=== PATIENT | female | born 1995 | race Caucasian/White ===

== ENCOUNTER 2022-09-02 13:18 | Outpatient (CLI) | payer MEDICAID ==
[~2022-09-02] VITALS: Ht 157 cm; Wt 95.4 kg
[2022-09-02 13:34] VITALS: BP 112/75
[2022-09-02 13:54] VITALS: BP 106/96
[2022-09-02 14:25] VITALS: BP 106/96
[2022-09-02 14:41] LABS: BILIRUBIN,URINE NEGATIVE (NEGATIVE); CLARITY,URINE CLOUDY; COLOR,URINE YELLOW; GLUCOSE, URINE (UA) NEGATIVE (NEGATIVE); KETONES,URINE NEGATIVE (NEGATIVE); LEUKOCYTE ESTERASE ,URINE 1+ (NEGATIVE); NITRITE,URINE NEGATIVE (NEGATIVE); PH,URINE 7.5 (5-9); PROTEIN,URINE NEGATIVE (NEGATIVE)
[2022-09-02 14:52] LABS: BACTERIA,URINE MODERATE /HPF
[2022-09-02] MEDS ORDERED: SERT100T PO (14:56)
[2022-09-02] MEDS ORDERED: ACYC400T21 PO (14:56)
[2022-09-02] MEDS ORDERED: FERR-84 PO (14:56)
[2022-09-02] MEDS ORDERED: PNV11TAB5 PO (14:56)
[2022-09-02 14:57] VITALS: BP 104/68
[2022-09-02 15:45] VITALS: BP 119/68
[2022-09-02 16:06] VITALS: BP 119/68
--- NOTE | 2022-09-02 16:07 | Physician Query-Final Dx ---
Clinic Account Progress/Dx DIAGNOSIS: Date Seen by Provider: Sep 02, 2022 Time Seen by Provider: 15:45 Contractions without active labor. Gestational Age in Weeks: 39 Gestational Age in Days: 2 Supervisory-Addendum Brief Supervisory Addendum Verification and Attestation of Medical Student E/M Service A medical student performed and documented this service in my presence. I reviewed and verified all information documented by the medical student and made modifications to such information, when appropriate. I personally performed the physical exam and medical decision making. Jorge Ontiveros, Sep 02, 2022,16:21 ARIC DIAZ Sep 02, 2022 16:07 JORGE ONTIVEROS MD Sep 02, 2022 16:21
== END 2022-09-02 16:06 | disposition home or self-care (01) ==
LOC: WSo 13:18 → LDRP 13:18 → WSo 16:06
PROVIDERS: ATTEND Family Medicine
DX: O47.1 False labor at or after 37 completed weeks of gestation (principal); O42.92 Full-term premature rupture of membranes, unspecified as to length of time between rupture and onset of labor; Z3A.39 39 weeks gestation of pregnancy
CPT/HCPCS: 81000; 87088; 99214

== ENCOUNTER 2022-09-09 05:54 | Inpatient (IN) | payer MEDICAID ==
[2022-09-09] VITALS (49 sets, daily range): BP systolic 91–135; BP diastolic 48–82
[~2022-09-09] VITALS: Ht 157.4 cm; Wt 96.7 kg
[~2022-09-09 05:54] MED LIST: ACYC400T21 PO; FERR-84 PO; PNV11TAB5 PO; SERT100T PO
[2022-09-09] MEDS ORDERED: MINERAL OIL 30 ML UDC TOP PRN (06:00)
[2022-09-09] MEDS ORDERED: OXYTOCIN PRE-MIX DRIP 500 ML IV SCH (06:00)
[2022-09-09] MEDS ORDERED: AMPICILLIN FOR IV USE 2,000 MG in NS (IVPB) 50 ML IV ONE (06:04)
[2022-09-09 06:30] LABS: BASOPHILS # (AUTO) 0.1 10^3/uL (0.0-0.1); BASOPHILS % (AUTO) 1 % (0-10); EOSINOPHILS # (AUTO) 0.2 10^3/uL (0.0-0.3); EOSINOPHILS % (AUTO) 2 % (0-10); HEMATOCRIT 33 % (35-52); LYMPHOCYTES # (AUTO) 2.2 10^3/uL (1.0-4.0); LYMPHOCYTES % (AUTO) 20 % (12-44); MEAN CORPUSCULAR HEMOGLOBIN 22 pg (25-34); MEAN CORPUSCULAR HGB CONC 30 g/dL (32-36); MEAN CORPUSCULAR VOLUME 72 fL (80-99); MEAN PLATELET VOLUME 9.7 fL (9.0-12.2); MONOCYTES # (AUTO) 0.7 10^3/uL (0.0-1.0); MONOCYTES % (AUTO) 7 % (0-12); NEUTROPHILS # (AUTO) 7.6 10^3/uL (1.8-7.8); NEUTROPHILS % (AUTO) 71 % (42-75); PLATELET COUNT 297 10^3/uL (130-400); WHITE BLOOD COUNT 10.7 10^3/uL (4.3-11.0)
[2022-09-09] MEDS: D5 LR IV SOLUTION 1,000 ML IV SCH ×2 (06:37→14:37)
[2022-09-09] MEDS: CATHETER FLUSH 10 ML SYR IV SCH ×3 (08:01→22:26)
--- NOTE | 2022-09-09 08:08 | History & Physical-OB ---
OB - Chief Complaint & HPI Date/Time Date of Admission: Date of Admission: Sep 09, 2022 at 05:54 Date seen by a Provider: Sep 09, 2022 Time Seen by a Provider: 07:50 Chief Complaint/History OB-Reason for Admission/Chief: Induction of Labor Hx : 1 Hx Para: 0 Expected Date of Delivery: Sep 07, 2022 Gestational Age in Weeks: 40 Gestational Age in Days: 2 Indication for induction: maternal discomfort History of Labs A pos, antibody neg, RI. HIV/HepB/RPR NR. GC/chlamydia neg. cell free DNA normal. 1 hour glucola negative. GBS positive. Other History of genital herpes, on acyclovir suppression therapy with no evidence of outbreak. Allergies and Home Medications Allergies Coded Allergies: No Known Drug Allergies (Unverified , 09/02/22) Patient Home Medication List Home Medication List Reviewed: Yes Acyclovir (Acyclovir) 400 Mg Tablet, 400 MG PO DAILY, (Reported) Entered as Reported by: TASIA PETTY on 09/02/221455 Last Action: Reviewed Ferrous Sulfate (Iron) 325 Mg (65 Mg Iron) Tablet, 325 MG PO DAILY, (Reported) Entered as Reported by: TASIA PETTY on 09/02/221455 Last Action: Reviewed Kjo113/FA/Omega3/Dha/Fish Oil ( Gummies) 400 Mcg-32.5 Mg (25 Mg-7.5 Mg) Tab.chew, 1 EACH PO DAILY, (Reported) Entered as Reported by: TASIA PETTY on 09/02/221455 Last Action: Reviewed Sertraline HCl (Zoloft) 100 Mg Tablet, 100 MG PO DAILY, (Reported) Entered as Reported by: TASIA PETTY on 09/02/221455 Last Action: Reviewed OB - History Hx of Present Ultrasounds: Normal mid trimester US Obstetrical Complications: None Medical Complications: Psychiatric (depression) Information Induced Hypertension: No Maternal Gestational Diabetes: No Hemorrhage: No Obstetrical History Hx : 1 Hx Para: 0 Patient Past Medical History PMHx: Depression Genital herpes Mild intermittent asthma SurgHx: Adenoidectomy Social History/Family History Alcohol Use: Denies Use Recreational Drug Use: No Smoking Cessation: Never smoker 2nd Hand Smoke Exposure: Yes Immunizations Influenza Vaccine Up-to-Date: No; Not Current First/Initial COVID19 Vaccine: 08/21/2021 Hepatitis A: No Hepatitis B: No Tetanus Booster (TDap): Less than 5yrs (04/02/2022) Rubella: immune RPR/VDRL: Negative GBS Status: Positive HBsAG: Negative OB - Admission Exam Physical Exam Vitals: Vital Signs 09/09/22 06:56 Temp 36.4 Pulse 97 Resp 18 Pulse Ox 97 O2 Delivery Room Air HEENT: NCAT Abdomen: Non tender Extremities: Normal Cervical Dilatation: 3cm Effacement: 75% Station: -3 Membranes: Intact Heart Rate: 120's Accelerations: Accelerations Present Decelerations: No Decelerations Short Term Variability: Present Staffing Clerk Variability: Average (6-25) Contractions on Admission: None Rincon Scoring Tool (Modified) Dilation (cm): 3-4cm (2) Effacement (%): 51-79% (2) Descent/Station: -3 (0) Cervix Consistency: Soft (2) Cervix Position: Anterior (2) Subtract 1 point for: Nulliparity (-1) Rincon Score: 7 Labs Laboratory Tests Test 09/09/22 06:12 Range/Units White Blood Count 10.7 4.3-11.0 10^3/uL Red Blood Count 4.58 3.80-5.11 10^6/uL Hemoglobin 10.0 L 11.5-16.0 g/dL Hematocrit 33 L 35-52 % Mean Corpuscular Volume 72 L 80-99 fL Mean Corpuscular Hemoglobin 22 L 25-34 pg Mean Corpuscular Hemoglobin Concent 30 L 32-36 g/dL Red Cell Distribution Width 16.6 H 10.0-14.5 % Platelet Count 297 130-400 10^3/uL Mean Platelet Volume 9.7 9.0-12.2 fL Immature Granulocyte % (Auto) 0 % Neutrophils (%) (Auto) 71 42-75 % Lymphocytes (%) (Auto) 20 12-44 % Monocytes (%) (Auto) 7 0-12 % Eosinophils (%) (Auto) 2 0-10 % Basophils (%) (Auto) 1 0-10 % Neutrophils # (Auto) 7.6 1.8-7.8 10^3/uL Lymphocytes # (Auto) 2.2 1.0-4.0 10^3/uL Monocytes # (Auto) 0.7 0.0-1.0 10^3/uL Eosinophils # (Auto) 0.2 0.0-0.3 10^3/uL Basophils # (Auto) 0.1 0.0-0.1 10^3/uL Immature Granulocyte # (Auto) 0.0 0.0-0.1 10^3/uL OB - Assessment/Plan/Diagnosis Assessment Admission Dx Term intrauterine at 40 weeks gestation Induction of labor planned History of genital herpes- on acyclovir suppression, no current lesions noted, no symptoms GBS positive Admission Status: Inpatient Order (span 2 midnights) Reason for Inpatient Admission: Labor, delivery and course Plan Plan: Induction Induction Method: per Pitocin Protocol JORGE RIGGINS MD Sep 09, 2022 08:08
[2022-09-09] MEDS ORDERED: FLU QUADRIvalent (6 months+) 60 mcg/0.5 ml 2022-23 (Fluzone) IM ONE (09:00)
[2022-09-09] MEDS: AMPICILLIN FOR IV USE 1,000 MG in NS (IVPB) 50 ML IV SCH ×4 (10:16→22:05)
--- NOTE | 2022-09-09 14:20 | Labor Progress Note ---
Labor Progress Note Labor Progress Note Date Seen by Provider: Sep 09, 2022 Time Seen by Provider: 14:00 Subjective: Pt getting more uncomfortable with contractions, but doing okay. Objective: Cervical exam: /-3 Consistency: soft Position: anterior Presentation: vertex heart tones: [] beats per minute, moderate variability, accels present. One variable deceleration after ROM with spontaneous recovery. Tocometer: 3-5 ctx/10 minutes Assessment/Plan: Yissel Bradshaw is a (27 /Para 1 / 0,Gestational Age (wks)40 here for IOL. AROM done at time of exam with thin meconium stained fluid return. FSE placed due to difficulty tracing FHTs. FSE/TOCO Continue pitocin Anesthesia: none Anticipate vaginal delivery. Vitals - Labs Vital Signs - I&O Vital Signs Date Time Temp Pulse Resp B/P (MAP) Pulse Ox O2 Delivery O2 Flow Rate FiO2 09/09/22 12:15 77 18 123/65 (84) Room Air 09/09/22 12:00 79 18 121/64 (83) Room Air 09/09/22 11:45 71 18 117/56 (76) Room Air 09/09/22 11:30 73 18 118/56 (76) Room Air 09/09/22 11:15 Room Air 09/09/22 11:00 Room Air 09/09/22 10:45 83 18 120/71 (87) Room Air 09/09/22 10:30 83 18 118/69 (85) Room Air 09/09/22 10:15 77 18 119/73 (88) Room Air 09/09/22 10:00 37.0 62 18 103/54 (70) Room Air 09/09/22 09:45 71 18 91/52 (65) Room Air 09/09/22 09:30 65 18 93/48 (63) Room Air 09/09/22 09:15 69 18 108/55 (72) Room Air 09/09/22 09:00 68 18 107/59 (75) Room Air 09/09/22 08:45 73 18 108/63 (78) Room Air 09/09/22 08:30 74 18 109/66 (80) Room Air 09/09/22 08:00 36.6 09/09/22 06:56 36.4 97 18 97 Room Air Labs Laboratory Tests 09/09/22 06:12: White Blood Count 10.7, Red Blood Count 4.58, Hemoglobin 10.0L, Hematocrit 33L, Mean Corpuscular Volume 72L, Mean Corpuscular Hemoglobin 22L, Mean Corpuscular Hemoglobin Concent 30L, Red Cell Distribution Width 16.6H, Platelet Count 297, Mean Platelet Volume 9.7, Immature Granulocyte % (Auto) 0, Neutrophils (%) (Auto) 71, Lymphocytes (%) (Auto) 20, Monocytes (%) (Auto) 7, Eosinophils (%) (Auto) 2, Basophils (%) (Auto) 1, Neutrophils # (Auto) 7.6, Lymphocytes # (Auto) 2.2, Monocytes # (Auto) 0.7, Eosinophils # (Auto) 0.2, Basophils # (Auto) 0.1, Immature Granulocyte # (Auto) 0.0 JORGE RIGGINS MD Sep 09, 2022 14:20
[2022-09-09] MEDS ORDERED: fentaNYL 2 mcg/ml BUPIVA 0.125 0 ML ONE (15:24)
[2022-09-09] MEDS ORDERED: fentaNYL INJ 100 MCG/2 ML AMP ONE ×2 (16:04→16:31)
[2022-09-09] MEDS ORDERED: LIDOCAINE PF 2% 5 ML (XYLOCAINE) VIAL ONE (16:04)
[2022-09-09] MEDS ORDERED: fentaNYL INJ 100 MCG/2 ML AMP IVP PRN (16:30)
--- NOTE | 2022-09-09 17:30 | Labor Progress Note ---
Labor Progress Note Labor Progress Note Date Seen by Provider: Sep 09, 2022 Time Seen by Provider: 17:15 Subjective: Pt having a lot of pain with contractions, but unable to get epidural due to rash on back over area needed to be accessed. Objective: Cervical exam: /-3 Consistency: soft Position: anterior Presentation: vertex heart tones: 130s beats per minute, moderate variability, reactive Tocometer: 3 ctx/10 minutes Assessment/Plan: Yissel Bradshaw is a (27 /Para 1 / 0,Gestational Age (wks)40 here for IOL. FSE/TOCO Continue pitocin Anesthesia: none Anticipate vaginal delivery. Vitals - Labs Vital Signs - I&O Vital Signs Date Time Temp Pulse Resp B/P (MAP) Pulse Ox O2 Delivery O2 Flow Rate FiO2 09/09/22 15:45 88 18 124/74 (91) Room Air 09/09/22 15:30 36.0 81 18 130/76 (94) Room Air 09/09/22 15:15 77 18 122/73 (89) Room Air 09/09/22 15:00 82 18 119/82 (94) Room Air 09/09/22 14:45 75 18 120/68 (85) Room Air 09/09/22 14:30 81 18 110/67 (81) Room Air 09/09/22 14:15 88 18 114/70 (85) Room Air 09/09/22 14:00 Room Air 09/09/22 13:45 85 18 135/72 (93) Room Air 09/09/22 13:30 81 18 122/75 (91) Room Air 09/09/22 13:15 75 18 122/69 (86) Room Air 09/09/22 13:00 81 18 128/74 (92) Room Air 09/09/22 12:45 37.3 82 18 129/69 (89) Room Air 09/09/22 12:30 82 18 133/69 (90) Room Air 09/09/22 12:15 77 18 123/65 (84) Room Air 09/09/22 12:00 79 18 121/64 (83) Room Air 09/09/22 11:45 71 18 117/56 (76) Room Air 09/09/22 11:30 73 18 118/56 (76) Room Air 09/09/22 11:15 Room Air 09/09/22 11:00 Room Air 09/09/22 10:45 83 18 120/71 (87) Room Air 09/09/22 10:30 83 18 118/69 (85) Room Air 09/09/22 10:15 77 18 119/73 (88) Room Air 09/09/22 10:00 37.0 62 18 103/54 (70) Room Air 09/09/22 09:45 71 18 91/52 (65) Room Air 09/09/22 09:30 65 18 93/48 (63) Room Air 09/09/22 09:15 69 18 108/55 (72) Room Air 09/09/22 09:00 68 18 107/59 (75) Room Air 09/09/22 08:45 73 18 108/63 (78) Room Air 09/09/22 08:30 74 18 109/66 (80) Room Air 09/09/22 08:00 36.6 09/09/22 06:56 36.4 97 18 97 Room Air Labs Laboratory Tests 09/09/22 06:12: White Blood Count 10.7, Red Blood Count 4.58, Hemoglobin 10.0L, Hematocrit 33L, Mean Corpuscular Volume 72L, Mean Corpuscular Hemoglobin 22L, Mean Corpuscular Hemoglobin Concent 30L, Red Cell Distribution Width 16.6H, Platelet Count 297, Mean Platelet Volume 9.7, Immature Granulocyte % (Auto) 0, Neutrophils (%) (Auto) 71, Lymphocytes (%) (Auto) 20, Monocytes (%) (Auto) 7, Eosinophils (%) (Auto) 2, Basophils (%) (Auto) 1, Neutrophils # (Auto) 7.6, Lymphocytes # (Auto) 2.2, Monocytes # (Auto) 0.7, Eosinophils # (Auto) 0.2, Basophils # (Auto) 0.1, Immature Granulocyte # (Auto) 0.0 JORGE RIGGINS MD Sep 09, 2022 17:30
[2022-09-09] MEDS ORDERED: BUTORPHANOL INJ 2 MG/ML (STADOL) VIAL ONE (17:38)
[2022-09-09] MEDS ORDERED: BUTORPHANOL INJ 2 MG/ML (STADOL) VIAL IV ONE (17:45)
[2022-09-09] MEDS ORDERED: ONDANSETRON 4 MG/2 ML (SDV) Z0FRAN IVP PRN (19:45)
[2022-09-09] MEDS ORDERED: ONDANSETRON 4 MG/2 ML (SDV) Z0FRAN ONE (19:48)
[2022-09-09] MEDS ORDERED: BUTORPHANOL INJ 2 MG/ML (STADOL) VIAL IV PRN (20:45)
[2022-09-09] MEDS: BUTORPHANOL INJ 2 MG/ML (STADOL) VIAL IV PRN (21:51)
[2022-09-09] MEDS ORDERED: LIDOCAINE 1% INJ 20 ML VIAL ONE (22:23)
[2022-09-10] VITALS (15 sets, daily range): BP systolic 105–128; BP diastolic 62–75
[2022-09-10] MEDS: BUTORPHANOL INJ 2 MG/ML (STADOL) VIAL IV PRN ×2 (00:20→02:34)
[2022-09-10] MEDS: D5 LR IV SOLUTION 1,000 ML IV SCH (00:32)
[2022-09-10] MEDS: AMPICILLIN FOR IV USE 1,000 MG in NS (IVPB) 50 ML IV SCH (02:33)
--- NOTE | 2022-09-10 03:11 | Labor Progress Note ---
Labor Progress Note Labor Progress Note Date Seen by Provider: Sep 10, 2022 Time Seen by Provider: 02:50 Subjective: Pt states she is having severe pain. She wants to have a . Currently she is very drowsy from her last dose of Stadol. Objective: Last exam at 2 am per nursing Cervical exam: 8 Consistency: 90 Position: -2 Presentation: vertex heart tones: 120 beats per minute, moderate variability, no decelerations Tocometer: 2 ctx/10 minutes Assessment/Plan: Yissel Bradshaw is a (27 /Para 1 / 0,Gestational Age (wks)40 here for induction of labor. She has had slow progress in active labor, has made 4 cm change in 12 hours and is requesting a . Discussed with her and her fa allan that given status reassuring, the safest plan is to attempt to have vaginal delivery if medically possible. She does have significant exhaustion and pain and slow progress, discussed that failure to progress is no cervical change in 2 hours, and given her need for general anesthesia with and recent Stadol use, would highly recommend further expectant management, at least until 4 am at which point if she has had no change from her last check can discuss proceeding with . Continue FSE/TOCO Anesthesia: none Vitals - Labs Vital Signs - I&O Vital Signs Date Time Temp Pulse Resp B/P (MAP) Pulse Ox O2 Delivery O2 Flow Rate FiO2 09/09/22 23:32 36.8 98 20 126/59 (81) 09/09/22 22:29 36.8 81 17 116/65 (82) 96 Room Air 09/09/22 21:55 36.8 74 20 112/59 (76) 95 Room Air 09/09/22 21:27 36.8 88 20 120/68 (85) 09/09/22 20:59 96 20 118/71 (87) 99 Room Air 09/09/22 20:30 107 20 110/74 (86) 99 Room Air 09/09/22 20:00 68 20 115/60 (78) 09/09/22 19:30 36.8 85 18 123/66 (85) Room Air 09/09/22 19:30 36.8 78 18 119/59 (79) 99 Room Air 09/09/22 19:00 76 18 127/79 (95) 99 Room Air 09/09/22 18:45 75 18 128/77 (94) 99 Room Air 09/09/22 18:30 68 18 123/73 (90) 97 Room Air 09/09/22 18:15 75 18 117/69 (85) 97 Room Air 09/09/22 18:00 76 18 121/69 (86) 97 Room Air 09/09/22 17:45 86 18 121/69 (86) Room Air 09/09/22 17:30 18 134/80 (98) Room Air 09/09/22 17:15 75 18 135/71 (92) 99 Room Air 09/09/22 17:00 75 18 135/71 (92) 99 Room Air 09/09/22 16:45 80 18 121/73 (89) 99 Room Air 09/09/22 16:30 37.1 81 18 127/59 (81) 99 Room Air 09/09/22 16:15 95 18 133/72 (92) 99 Room Air 09/09/22 16:00 73 18 130/81 (97) Room Air 09/09/22 15:45 88 18 124/74 (91) Room Air 09/09/22 15:30 36.0 81 18 130/76 (94) Room Air 09/09/22 15:15 77 18 122/73 (89) Room Air 09/09/22 15:00 82 18 119/82 (94) Room Air 09/09/22 14:45 75 18 120/68 (85) Room Air 09/09/22 14:30 81 18 110/67 (81) Room Air 09/09/22 14:15 88 18 114/70 (85) Room Air 09/09/22 14:00 Room Air 09/09/22 13:45 85 18 135/72 (93) Room Air 09/09/22 13:30 81 18 122/75 (91) Room Air 09/09/22 13:15 75 18 122/69 (86) Room Air 09/09/22 13:00 81 18 128/74 (92) Room Air 09/09/22 12:45 37.3 82 18 129/69 (89) Room Air 09/09/22 12:30 82 18 133/69 (90) Room Air 09/09/22 12:15 77 18 123/65 (84) Room Air 09/09/22 12:00 79 18 121/64 (83) Room Air 09/09/22 11:45 71 18 117/56 (76) Room Air 09/09/22 11:30 73 18 118/56 (76) Room Air 09/09/22 11:15 Room Air 09/09/22 11:00 Room Air 09/09/22 10:45 83 18 120/71 (87) Room Air 09/09/22 10:30 83 18 118/69 (85) Room Air 09/09/22 10:15 77 18 119/73 (88) Room Air 09/09/22 10:00 37.0 62 18 103/54 (70) Room Air 09/09/22 09:45 71 18 91/52 (65) Room Air 09/09/22 09:30 65 18 93/48 (63) Room Air 09/09/22 09:15 69 18 108/55 (72) Room Air 09/09/22 09:00 68 18 107/59 (75) Room Air 09/09/22 08:45 73 18 108/63 (78) Room Air 09/09/22 08:30 74 18 109/66 (80) Room Air 09/09/22 08:00 36.6 09/09/22 06:56 36.4 97 18 97 Room Air I & O 09/10/22 07:00 Intake Total 1150 ml Balance 1150 ml Labs Laboratory Tests 09/09/22 06:12: White Blood Count 10.7, Red Blood Count 4.58, Hemoglobin 10.0L, Hematocrit 33L, Mean Corpuscular Volume 72L, Mean Corpuscular Hemoglobin 22L, Mean Corpuscular Hemoglobin Concent 30L, Red Cell Distribution Width 16.6H, Platelet Count 297, Mean Platelet Volume 9.7, Immature Granulocyte % (Auto) 0, Neutrophils (%) (Auto) 71, Lymphocytes (%) (Auto) 20, Monocytes (%) (Auto) 7, Eosinophils (%) (Auto) 2, Basophils (%) (Auto) 1, Neutrophils # (Auto) 7.6, Lymphocytes # (Auto) 2.2, Monocytes # (Auto) 0.7, Eosinophils # (Auto) 0.2, Basophils # (Auto) 0.1, Immature Granulocyte # (Auto) 0.0, Syphilis Serology Non-Reactive GILSON,JORGE N MD Sep 10, 2022 03:11
[2022-09-10] MEDS ORDERED: METOCLOPRAMIDE INJ 10 MG/2 ML (REGLAN) IV ONE (04:30)
[2022-09-10] MEDS ORDERED: CITRIC ACID/SOB CIT (BICITRA) 30 ML UDC PO ONE (04:30)
[2022-09-10] MEDS ORDERED: LACTATED RINGERS 1,000 ML IV PRN ×2 (04:30)
[2022-09-10] MEDS ORDERED: FAMOTIDINE 20MG/2ML IV (PEPCID) IV ONE (04:30)
[2022-09-10] MEDS ORDERED: CITRIC ACID/SOB CIT (BICITRA) 30 ML UDC ONE (04:38)
[2022-09-10] MEDS ORDERED: metroNIDAZOLE 500MG/100ML IVPB 100 ML IV ONE ×2 (04:45→05:00)
[2022-09-10] MEDS ORDERED: ceFAZolin INJECTION 2,000 MG in NS (IVPB) 50 ML IV ONE ×2 (04:45→05:00)
[2022-09-10] MEDS ORDERED: NS (IVPB) 50 ML ONE (04:46)
[2022-09-10] MEDS ORDERED: ceFAZolin INJECTION 2,000 MG ONE (04:46)
[2022-09-10] MEDS ORDERED: metroNIDAZOLE 500MG/100ML IVPB 100 ML ONE (04:46)
[2022-09-10] MEDS ORDERED: fentaNYL INJ 100 MCG/2 ML AMP ONE ×2 (05:07→06:09)
[2022-09-10] MEDS ORDERED: ONDANSETRON 4 MG/2 ML (SDV) Z0FRAN ONE (05:07)
[2022-09-10] MEDS ORDERED: SUCCINYLCHOLINE INJ 100 MG/5 ML SYR/VIAL ONE (05:07)
[2022-09-10] MEDS ORDERED: proPOfol 200 MG/20 ML (DIPRIVAN) VIAL IV ONE (05:07)
[2022-09-10] MEDS ORDERED: IBUP-1780 PO ×2 (05:16→08:22)
[2022-09-10] MEDS ORDERED: DOCU-143 PO (05:16)
[2022-09-10] MEDS ORDERED: OXYC1TAB12 PO ×2 (05:16→08:22)
--- NOTE | 2022-09-10 05:17 | Discharge Inst-Surgical ---
Discharge Inst-Surgical Depart Medication/Instructions New, Converted or Re-Newed RX: Other Consults/Follow Up Orders & Referrals Follow Up Appt: RTC 1 week for incision check With Dr. Cheng. Call to make follow up appt. for patient in [address] Ontiveros. Wound Care: Remove coleman, apply benzoin and steri strips. Activity Per routine post instructions. Diet as tolerated Patient may shower or tub bathe as desired. Continue home meds Activity Activity as Tolerated: No Diet Discharge Diet: No Restrictions RICARDO CHENG MD Sep 10, 2022 05:17
[2022-09-10] MEDS: KETOROLAC 30 MG/ML VIAL IV SCH ×3 (05:50→20:22)
[2022-09-10] MEDS ORDERED: KETOROLAC 30 MG/ML VIAL ONE (06:09)
[2022-09-10] MEDS ORDERED: HYDROmorphone 2 MG/ML VIAL (DILAUDID) IV ONE (06:15)
[2022-09-10] MEDS ORDERED: ONDANSETRON 4 MG/2 ML (SDV) Z0FRAN IVP PRN (06:15)
[2022-09-10] MEDS ORDERED: D5 LR IV SOLUTION 1,000 ML IV SCH (06:45)
[2022-09-10] MEDS ORDERED: MEPERIDINE (DEMEROL) INJ 100 MG/ML IM PRN (06:45)
[2022-09-10] MEDS ORDERED: PROMETHAZINE INJ 25 MG/ML (PHENERGAN) AMP IVP PRN (06:45)
[2022-09-10] MEDS ORDERED: OXYTOCIN PRE-MIX DRIP 500 ML IV SCH (06:45)
[2022-09-10] MEDS ORDERED: DOCU100C37 PO (08:22)
[2022-09-10] MEDS: oxyCODONE/APAP 10/325MG (PERCOCET 10) TABLET PO PRN ×3 (09:18→20:39)
--- NOTE | 2022-09-10 15:52 | OPERATIVE REPORT ---
DATE OF SERVICE: 09/10/2022 PREOPERATIVE DIAGNOSIS: Postdates , in labor with failure to progress. POSTOPERATIVE DIAGNOSIS: Postdates , in labor with failure to progress. OPERATIVE PROCEDURE: Primary low transverse delivery of a viable male infant with Apgars of 6 and 9 at 1 and 5 minutes, respectively, weight of 8 pounds 1 ounce. Cord blood pH is pending and time of 05:32. OPERATIVE DESCRIPTION: With the patient in the supine position, she was prepped and draped in the usual fashion for abdominal surgery. Faulkner catheter was already in the urinary bladder to dependent drainage. The patient was then subjected to general anesthesia. Under satisfactory general anesthesia, a Pfannenstiel incision was made through the skin with a scalpel. The patient's abdomen was entered in the usual manner. Bladder retractor placed in position. Clean scalpel used to make a 4 cm hysterotomy incision transversely across the lower uterine segment that was extended bluntly. A vigorous viable male infant was delivered via the uterine incision. The infant had Apgars and stats as noted above. The infant did have a nuchal cord, but was slipped over the shoulder, delivered through it. The umbilical cord was doubly clamped and cut and the passed to the development analyst, Dr. Ontiveros in attendance for delivery. Cord bloods were obtained. The placenta delivered promptly spontaneously with Kumar, it was normal with a 3-vessel cord. The uterus was exteriorized and the interior wiped clean with a wet laparotomy sponge. Uterine incision was then closed with a running locked suture of 2-0 Vicryl. Hemostasis was satisfactory. However, the uterus was quite atonic in spite of IV Pitocin. A modified B-Bowers suture was placed using 2-0 chromic sutures in the usual modified manner. This compressed the uterus nicely. The uterus was then returned to the abdominal cavity. All blood clot and debris was removed from the abdominal cavity. The sponge and needle counts correct and hemostasis assured. The anterior parietal peritoneum was closed with running suture of 2-0 Vicryl. Rectus muscles were closed with that suture as well. The rectus fascia was closed with 2-0 Vicryl. Subcutaneous tissue was closed with 2-0 Vicryl and the skin was staple. Sponge and needle counts were correct at the end of the procedure. Blood loss was around 500 mL. The patient was then uneventfully awakened from her general anesthesia and transferred to the recovery room in stable condition. The had been taken stable to the full term nursery under the care of Dr. Ontiveros. Job ID: [id number] DocumentID: [id number] Dictated Date: 09/10/2022 06:14:29 Fishing Vessel Deckhand Date: 09/10/2022 15:50:00 Dictated By: RICARDO MATIAS MD
[2022-09-10] MEDS: DOCUSATE SODIUM 100 MG (COLACE) CAP PO SCH (20:21)
[2022-09-11 00:30] VITALS: BP 119/64
[2022-09-11] MEDS: oxyCODONE/APAP 10/325MG (PERCOCET 10) TABLET PO PRN ×4 (02:52→22:09)
[2022-09-11] MEDS: KETOROLAC 30 MG/ML VIAL IV SCH (02:52)
[2022-09-11 03:00] VITALS: BP 112/55
--- NOTE | 2022-09-11 08:20 | Progress Note ---
Standard Progress Note Progress Notes/Assess & Plan Date Seen by a Provider: Sep 11, 2022 Time Seen by a Provider: 08:19 Progress/Assessment & Plan This patient is without complaint. She is ambulating, voiding, tolerating oral intake well and has good pain control. Vital Signs Date Time Temp Pulse Resp B/P (MAP) Pulse Ox O2 Delivery O2 Flow Rate FiO2 09/11/22 06:40 Room Air 09/11/22 03:00 36.6 98 16 112/55 (74) 96 Room Air 09/11/22 00:30 37.0 102 16 119/64 (82) 95 Room Air 09/10/22 20:20 37.2 97 18 109/65 (80) 98 Room Air 09/10/22 13:32 36.9 94 22 105/62 (76) Room Air 09/10/22 12:51 37.0 78 20 112/68 (83) 96 Room Air I & O 09/11/22 07:00 Intake Total 1300 ml Output Total 150 ml Balance 1150 ml Vital signs are stable. Patient is afebrile. The abdomen is benign. Fundus is firm below the umbilicus and nontender. Patient reports the incision is clean and dry Extremities show no clubbing or cyanosis. There is no Homans' sign. Assessment and plan Postoperative day #1 status post primary delivery at 40+ weeks gestation. Patient is doing well and will have routine convalescent care RICARDO MATIAS MD Sep 11, 2022 08:20
--- NOTE | 2022-09-11 09:12 | Anesthesia-General Post-Op ---
General Patient Condition Mental Status/LOC: Same as Preop Cardiovascular: Satisfactory Nausea/Vomiting: Absent Respiratory: Satisfactory Pain: Controlled Complications: Absent Post Op Complications Complications None Follow Up Care/Instructions Patient Instructions None needed. Anesthesia/Patient Condition Patient Condition Patient is doing well, no complaints, stable vital signs, no apparent adverse anesthesia problems. No complications reported per nursing. OJ CLEMENTE CRNA Sep 11, 2022 09:12
[2022-09-11 10:53] VITALS: BP 116/62
[2022-09-11] MEDS: DOCUSATE SODIUM 100 MG (COLACE) CAP PO SCH ×2 (10:56→22:09)
[2022-09-11] MEDS: IBUPROFEN 800 MG (MOTRIN) TAB PO SCH ×3 (10:56→22:09)
[2022-09-11 15:40] VITALS: BP 112/58
[2022-09-11 22:00] VITALS: BP 107/60
[2022-09-12] MEDS: DOCUSATE SODIUM 100 MG (COLACE) CAP PO SCH ×2 (02:06→11:41)
[2022-09-12 04:30] VITALS: BP 119/72
[2022-09-12] MEDS: IBUPROFEN 800 MG (MOTRIN) TAB PO SCH ×2 (04:30→11:41)
[2022-09-12] MEDS: oxyCODONE/APAP 10/325MG (PERCOCET 10) TABLET PO PRN ×2 (05:06→11:43)
--- NOTE | 2022-09-12 09:52 | Progress Note ---
Standard Progress Note Progress Notes/Assess & Plan Date Seen by a Provider: Sep 12, 2022 Time Seen by a Provider: 09:50 Progress/Assessment & Plan This patient is without complaint. She is ambulating, voiding, tolerating oral intake well and has good pain control. Vital Signs Date Time Temp Pulse Resp B/P (MAP) Pulse Ox O2 Delivery O2 Flow Rate FiO2 09/11/22 06:40 Room Air 09/11/22 03:00 36.6 98 16 112/55 (74) 96 Room Air 09/11/22 00:30 37.0 102 16 119/64 (82) 95 Room Air 09/10/22 20:20 37.2 97 18 109/65 (80) 98 Room Air 09/10/22 13:32 36.9 94 22 105/62 (76) Room Air 09/10/22 12:51 37.0 78 20 112/68 (83) 96 Room Air I & O 09/11/22 07:00 Intake Total 1300 ml Output Total 150 ml Balance 1150 ml Vital signs are stable. Patient is afebrile. The abdomen is benign. Fundus is firm below the umbilicus and nontender. Patient reports the incision is clean and dry Extremities show no clubbing or cyanosis. There is no Homans' sign. Assessment and plan Postoperative day #1 status post primary delivery at 40+ weeks gestation. Patient is doing well and will have routine convalescent care September 12, 2022 Patient is without complaint. She is ambulating, voiding, tolerating oral intake well and she has good pain control.She denies chest pain, denies shortness of breath, denies nausea vomiting, and denies headache. Vital Signs Date Time Temp Pulse Resp B/P (MAP) Pulse Ox O2 Delivery O2 Flow Rate FiO2 09/12/22 04:30 37.0 86 18 119/72 (88) 97 Room Air 09/11/22 22:00 37.0 89 18 107/60 (76) 97 Room Air 09/11/22 15:40 36.3 96 18 112/58 (76) 97 Room Air 09/11/22 10:53 37.0 97 18 116/62 (80) 97 Room Air I & O 09/12/22 07:00 Intake Total 300 ml Output Total 400 ml Balance -100 ml Vital signs are stable. Patient is afebrile. Physical exam is benign. Patient was ambulatory abdomen was not inspected Extremities show no clubbing or cyanosis Assessment and plan Postoperative day #2 status post primary delivery patient is doing well and will continue with routine convalescent care. She can be discharged home today or tomorrow as she desires RICARDO MATIAS MD Sep 12, 2022 09:52
[2022-09-12 11:44] VITALS: BP 119/69
== END 2022-09-12 14:25 | disposition home or self-care (01) | DRG 787 ==
LOC: LDRP 05:54
PROVIDERS: ADMIT Family Medicine; ATTEND Family Medicine
PROC: 10D00Z1 Extraction of Products of Conception, Low, Open Approach (ICD-10-PCS; principal; 2022-09-10 05:18)
DX: O48.0 Post-term pregnancy (principal); O98.32 Other infections with a predominantly sexual mode of transmission complicating childbirth; A60.00 Herpesviral infection of urogenital system, unspecified; Z3A.40 40 weeks gestation of pregnancy; Z37.0 Single live birth; O99.824 Streptococcus B carrier state complicating childbirth; O99.344 Other mental disorders complicating childbirth; F32.A Depression, unspecified; O99.52 Diseases of the respiratory system complicating childbirth; J45.909 Unspecified asthma, uncomplicated; O62.0 Primary inadequate contractions
CPT/HCPCS: 36415; 85025; 86780; 86850; 86900; 86901; 94664